=== PATIENT | female | born 2000 | race Two or more races ===

== ENCOUNTER 2023-06-17 07:37 | Emergency (ER) | payer MEDICAID ==
[~2023-06-17] VITALS: Ht 167.6 cm; Wt 66.9 kg
[2023-06-17 08:12] VITALS: BP 113/71; PULSE 100; TEMP 97.7
[2023-06-17 08:24] VITALS: RESP 16; O2SAT 94
[2023-06-17] MEDS: ALBUTEROL SULF 2.5 MG/0.5ML(0.5%) NEB SOLN NEB ONE (08:24)
[2023-06-17] MEDS: IPRATROPIUM BROM 0.5 MG/2.5ML INH SOL NEB ONE (08:24)
[2023-06-17] MEDS ORDERED: METH4PAK PO (08:38)
[2023-06-17] MEDS ORDERED: ALBU108A5 IN (08:38)
== END 2023-06-17 08:43 | disposition home or self-care (01) ==
LOC: ER 07:37
DX: J02.9 Acute pharyngitis, unspecified (principal); J98.01 Acute bronchospasm
CPT/HCPCS: 94640; 99283; J7644